=== PATIENT | female | born 1980 ===

== ENCOUNTER 2020-11-03 22:08 | Emergency (ER) | payer OTHER ==
[~2020-11-03] VITALS: Ht 162.6 cm; Wt 65.0 kg
[2020-11-03 22:33] LABS: BASOPHILS % (AUTO) 1 % (0-1); EOSINOPHILS % (AUTO) 2 % (1-7); LYMPHOCYTES % (AUTO) 37 % (22-44); MEAN CORPUSCULAR HEMOGLOBIN 30.5 pg (27.0-34.8); MEAN PLATELET VOLUME 8.9 fL (7.4-10.4); MONOCYTES % (AUTO) 8 % (2-9); NEUTROPHILS % (AUTO) 53 % (42-75); PLATELET COUNT 302 x10^3/uL (130-400); RED BLOOD COUNT 3.86 x10^6/uL (3.82-5.3); RED CELL DISTRIBUTION WIDTH 14.1 % (9.6-15.2)
[2020-11-03 22:44] LABS: ALBUMIN 2.9 g/dL (3.4-5.0); ANION GAP 5 mmol/L (5-15); CALCIUM 8.5 mg/dL (8.5-10.1); CHLORIDE 108 mmol/L (98-107); CREATININE 0.56 mg/dL (0.55-1.02)
--- NOTE | 2020-11-04 00:30 | NUR ---
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
--- NOTE | 2020-11-04 00:36 | NUR ---
pt c/o VB x1 month. denies n/v. vss, nadn.
[2020-11-04 00:46] VITALS: BP 134/67
[2020-11-04 01:23] LABS: MICROSCOPIC INDICATED
--- NOTE | 2020-11-04 01:33 | NUR ---
pt educated on dc instructions, verbalized understanding. ambulatory to dc desk with steady gait.
== END 2020-11-04 01:35 | disposition home or self-care (01) ==
LOC: ED 23:59
DX: N93.8 Other specified abnormal uterine and vaginal bleeding (principal); N92.0 Excessive and frequent menstruation with regular cycle
CPT/HCPCS: 36415; 76830; 80048; 81001; 82040; 84703; 85025; 87086; 99284